=== PATIENT | male | born 1985 | race Caucasian/White ===

== ENCOUNTER 2019-12-26 12:43 | Emergency (ER) | payer BC ==
[~2019-12-26] VITALS: Ht 182.9 cm; Wt 132.9 kg
[2019-12-26 12:49] VITALS: Ht 182.9 cm; Wt 132.9 kg
[2019-12-26 15:08] LABS: BASOPHIL % 0.3 % (0-2); PLATELET COUNT 230 x10^3mcL (130-400); RED CELL DISTRIBUTION WIDTH 13.1 % (11.5-14.5)
[2019-12-26 15:20] LABS: microscopic required? NO
[2019-12-26 15:29] LABS: urine erythrocyte NEGATIVE (NEGATIVE)
[2019-12-26 15:41] LABS: AMPHETAMINE QUAL UR NONE DETECTED (See below)
[2019-12-26 15:46] LABS: ALBUMIN 4.4 g/dL (3.4-5.0); ALKALINE PHOSPHATASE 69 U/L (46-116); ALT/SGPT 99 U/L (16-63); AST/SGOT 43 U/L (15-37); BILIRUBIN TOTAL 0.72 mg/dL (0.20-1.00); CALCIUM 8.7 mg/dL (8.5-10.1); CARBON DIOXIDE 25.4 mmol/L (21-32); CHLORIDE SERUM 99 mmol/L (98-107); CREATININE SERUM 1.1 mg/dL (0.7-1.3); GFR1 > 60 mL/min; GLUCOSE SERUM 95 mg/dL (74-106); HDL CHOLESTEROL 42 mg/dL (40-60); LIPASE 98 IU/L (73-393); POTASSIUM SERUM 4.4 mmol/L (3.5-5.1); SODIUM SERUM 133 mmol/L (136-145); T4(THYROXINE) 6.6 ug/dL (4.7-13.3); TOTAL PROTEIN, SERUM 7.9 g/dL (6.4-8.2)
[2019-12-26 16:01] LABS: CHOLESTEROL 266 mg/dL (<200)
[2019-12-26 16:53] VITALS: BP 154/95
== END 2019-12-26 16:53 | disposition home or self-care (01) ==
LOC: ED 12:43
PROVIDERS: Emergency Medicine
DX: F41.0 Panic disorder [episodic paroxysmal anxiety] (principal); R20.2 Paresthesia of skin; E66.9 Obesity, unspecified; Z68.39 Body mass index [BMI] 39.0-39.9, adult
CPT/HCPCS: 36415; 83880; Q0092